=== PATIENT | male | born 1990 | race Caucasian/White ===

== ENCOUNTER 2017-12-25 20:20 | Inpatient (IN) | payer BC ==
[~2017-12-25] VITALS: Ht 185.4 cm; Wt 84.8 kg
[2017-12-25 20:27] VITALS: Ht 185.4 cm; Wt 84.8 kg
[2017-12-25 21:52] LABS: BASOPHIL % 0.7 % (0-2); PLATELET COUNT 243 x10^3mcL (130-400); RED CELL DISTRIBUTION WIDTH 12.9 % (11.5-14.5)
[2017-12-25 22:02] LABS: CALCIUM 9.1 mg/dL (8.5-10.1); CARBON DIOXIDE 27.4 mmol/L (21-32); CHLORIDE SERUM 105 mmol/L (98-107); CREATININE SERUM 1.3 mg/dL (0.7-1.3); GFR1 > 60 mL/min; GLUCOSE SERUM 129 mg/dL (74-106); POTASSIUM SERUM 4.1 mmol/L (3.5-5.1); SODIUM SERUM 142 mmol/L (136-145)
[2017-12-25 22:07] LABS: ALBUMIN 3.8 g/dL (3.4-5.0); ALKALINE PHOSPHATASE 66 U/L (46-116); ALT/SGPT 27 U/L (16-63); AST/SGOT 18 U/L (15-37); BILIRUBIN TOTAL 0.61 mg/dL (0.20-1.00); TOTAL PROTEIN, SERUM 6.6 g/dL (6.4-8.2)
[2017-12-25 23:16] VITALS: BP 128/70
[2017-12-26 00:44] LABS: CHOLESTEROL/HDL RATIO 2.9; MAGNESIUM 2.1 mg/dL (1.8-2.4); PHOSPHOROUS 3.4 mg/dL (2.5-4.9)
[2017-12-26 00:47] LABS: T3 TOTAL 1.21 ng/mL
[2017-12-26 00:54] LABS: FREE T4 1.32 ng/dL (0.76-1.46); FREE THYROXINE INDEX 3.2 ug/dL (1.4-4.5); T4(THYROXINE) 9.1 ug/dL (4.7-13.3)
[2017-12-26 05:35] VITALS: BP 112/53
[2017-12-26 09:21] LABS: microscopic required? NO
[2017-12-26 09:31] LABS: UA SPECIFIC GRAVITY 1.025 (1.005-1.035); urine erythrocyte NEGATIVE (NEGATIVE)
[2017-12-26 09:38] VITALS: BP 114/68
[2017-12-26 09:42] LABS: AMPHETAMINE QUAL UR NONE DETECTED (See below)
[2017-12-26 13:37] VITALS: BP 104/64
[2017-12-26 17:44] VITALS: BP 126/54
[2017-12-26 20:20] VITALS: BP 98/59
[2017-12-27 05:18] VITALS: BP 104/53
[2017-12-27 07:29] LABS: BASOPHIL % 0.6 % (0-2); PLATELET COUNT 210 x10^3mcL (130-400); RED CELL DISTRIBUTION WIDTH 13.3 % (11.5-14.5)
[2017-12-27 07:37] LABS: CALCIUM 9.4 mg/dL (8.5-10.1); CARBON DIOXIDE 26.5 mmol/L (21-32); CHLORIDE SERUM 110 mmol/L (98-107); CREATININE SERUM 1.1 mg/dL (0.7-1.3); GFR1 > 60 mL/min; GLUCOSE SERUM 95 mg/dL (74-106); PHOSPHOROUS 4.2 mg/dL (2.5-4.9); POTASSIUM SERUM 4.6 mmol/L (3.5-5.1); SODIUM SERUM 144 mmol/L (136-145)
[2017-12-27 08:25] VITALS: BP 120/68
[2017-12-27] MEDS ORDERED: MECLIZINE HCL12.5 MG PO (08:40)
[2017-12-27 13:12] VITALS: BP 120/68
== END 2017-12-27 15:17 | disposition home or self-care (01) | DRG 73 ==
LOC: ED 20:20 → DU 22:41
PROVIDERS: Emergency Medicine; General Practice
DX: G90.8 Other disorders of autonomic nervous system (principal); N17.0 Acute kidney failure with tubular necrosis; E87.8 Other disorders of electrolyte and fluid balance, not elsewhere classified; R55 Syncope and collapse; F17.210 Nicotine dependence, cigarettes, uncomplicated; Z82.49 Family history of ischemic heart disease and other diseases of the circulatory system; Z83.3 Family history of diabetes mellitus
CPT/HCPCS: 83880; 84439; J7030; Q0092